=== PATIENT | male | born 1945 | race Caucasian/White ===

== ENCOUNTER → 2017-09-26 | Outpatient (CLI) | payer OTHER | LOC: M.WC 11:33 | DX: E11.622 Type 2 diabetes mellitus with other skin ulcer (principal); L89.892 Pressure ulcer of other site, stage 2; L97.121 Non-pressure chronic ulcer of left thigh limited to breakdown of skin; E11.36 Type 2 diabetes mellitus with diabetic cataract; E11.22 Type 2 diabetes mellitus with diabetic chronic kidney disease; I12.9 Hypertensive chronic kidney disease with stage 1 through stage 4 chronic kidney disease, or unspecified chronic kidney disease; N18.9 Chronic kidney disease, unspecified; L84 Corns and callosities; L60.0 Ingrowing nail; E66.01 Morbid (severe) obesity due to excess calories; E78.5 Hyperlipidemia, unspecified; M19.90 Unspecified osteoarthritis, unspecified site; G62.9 Polyneuropathy, unspecified; G89.29 Other chronic pain; G47.30 Sleep apnea, unspecified; J43.9 Emphysema, unspecified; Z87.891 Personal history of nicotine dependence; Z68.43 Body mass index [BMI] 50.0-59.9, adult ==

== ENCOUNTER → 2017-10-03 | Outpatient (CLI) | payer OTHER | LOC: M.WC 01:55 | DX: E11.622 Type 2 diabetes mellitus with other skin ulcer (principal); L89.892 Pressure ulcer of other site, stage 2; L97.121 Non-pressure chronic ulcer of left thigh limited to breakdown of skin; E11.42 Type 2 diabetes mellitus with diabetic polyneuropathy; E11.36 Type 2 diabetes mellitus with diabetic cataract; E11.22 Type 2 diabetes mellitus with diabetic chronic kidney disease; I12.9 Hypertensive chronic kidney disease with stage 1 through stage 4 chronic kidney disease, or unspecified chronic kidney disease; N18.9 Chronic kidney disease, unspecified; L84 Corns and callosities; E66.01 Morbid (severe) obesity due to excess calories; E78.5 Hyperlipidemia, unspecified; M19.90 Unspecified osteoarthritis, unspecified site; G47.30 Sleep apnea, unspecified; J43.9 Emphysema, unspecified; Z68.43 Body mass index [BMI] 50.0-59.9, adult; Z87.891 Personal history of nicotine dependence ==

== ENCOUNTER → 2017-10-10 | Outpatient (CLI) | payer OTHER | LOC: M.WC 00:44 | DX: E11.622 Type 2 diabetes mellitus with other skin ulcer (principal); L89.892 Pressure ulcer of other site, stage 2; L97.121 Non-pressure chronic ulcer of left thigh limited to breakdown of skin; E11.22 Type 2 diabetes mellitus with diabetic chronic kidney disease; I12.9 Hypertensive chronic kidney disease with stage 1 through stage 4 chronic kidney disease, or unspecified chronic kidney disease; N18.9 Chronic kidney disease, unspecified; E11.42 Type 2 diabetes mellitus with diabetic polyneuropathy; E11.36 Type 2 diabetes mellitus with diabetic cataract; L84 Corns and callosities; M19.90 Unspecified osteoarthritis, unspecified site; E66.01 Morbid (severe) obesity due to excess calories; E78.5 Hyperlipidemia, unspecified; G89.29 Other chronic pain; G47.30 Sleep apnea, unspecified; J43.9 Emphysema, unspecified; Z87.891 Personal history of nicotine dependence; Z68.43 Body mass index [BMI] 50.0-59.9, adult ==

== ENCOUNTER → 2017-10-24 | Outpatient (CLI) | payer OTHER ==
--- NOTE | 2017-10-31 11:11 | PATH ---
[address] [address] PATHOLOGY RPT PROCEDURE Name: DARIANA ROGERS [facility] [id number] Admission: 10/24/17 Date of : 43 Discharge: Report #: [id number] Path Case #: [id number] [facility] Accession Number: [id number] . 01 Material submitted: . LEFT THIGH . 01 Clinical history: . Wound left thigh . 02 Diagnosis: Biopsy left thigh: - Benign skin with non-specific ulceration, negative for granulomas. (OCHOA:db; 10/26/2017) LBQ/10/26/2017 . 02 Electronically signed: . Tarik Ramon MD, Pathologist NPI- [id number] . 01 Gross description: . The specimen is received in formalin, labeled "Dariana Rogers, biopsy L thigh" and consists of an elongate segment of mckoy-brink skin measuring 1.9 x 0.4 x 0.3 cm. It is inked, serially sectioned, and entirely submitted in A1. (SDY; 10/25/2017) SYU/SYU . 02 Pathologist provided ICD-10: L98.499 . 02 CPT . 723410 Performed at: [address], [place], [place] [id number] MD Richard Marvin MD Phone: [phone] Performed at: [address] [address] [place], [place] [id number] MD Tarik Ramon MD Phone: [phone]
== END ==
LOC: M.WC 10-17 02:56
DX: E11.622 Type 2 diabetes mellitus with other skin ulcer (principal); L89.892 Pressure ulcer of other site, stage 2; L97.121 Non-pressure chronic ulcer of left thigh limited to breakdown of skin; E11.42 Type 2 diabetes mellitus with diabetic polyneuropathy; E11.36 Type 2 diabetes mellitus with diabetic cataract; E11.22 Type 2 diabetes mellitus with diabetic chronic kidney disease; I12.9 Hypertensive chronic kidney disease with stage 1 through stage 4 chronic kidney disease, or unspecified chronic kidney disease; N18.9 Chronic kidney disease, unspecified; E66.01 Morbid (severe) obesity due to excess calories; E78.5 Hyperlipidemia, unspecified; M19.90 Unspecified osteoarthritis, unspecified site; J43.9 Emphysema, unspecified; G89.29 Other chronic pain; G47.30 Sleep apnea, unspecified; Z87.891 Personal history of nicotine dependence

== ENCOUNTER → 2017-11-07 | Outpatient (CLI) | payer OTHER | LOC: M.WC 10-31 13:00 | DX: E11.622 Type 2 diabetes mellitus with other skin ulcer (principal); L97.121 Non-pressure chronic ulcer of left thigh limited to breakdown of skin; L89.892 Pressure ulcer of other site, stage 2; E11.22 Type 2 diabetes mellitus with diabetic chronic kidney disease; I12.9 Hypertensive chronic kidney disease with stage 1 through stage 4 chronic kidney disease, or unspecified chronic kidney disease; N18.9 Chronic kidney disease, unspecified; E11.40 Type 2 diabetes mellitus with diabetic neuropathy, unspecified; E11.36 Type 2 diabetes mellitus with diabetic cataract; L84 Corns and callosities; E66.01 Morbid (severe) obesity due to excess calories; E78.5 Hyperlipidemia, unspecified; M19.90 Unspecified osteoarthritis, unspecified site; G89.29 Other chronic pain; G47.30 Sleep apnea, unspecified; J43.9 Emphysema, unspecified; Z87.891 Personal history of nicotine dependence; Z68.43 Body mass index [BMI] 50.0-59.9, adult ==

== ENCOUNTER → 2017-11-14 | Outpatient (CLI) | payer OTHER | LOC: M.WC 03:26 | DX: E11.622 Type 2 diabetes mellitus with other skin ulcer (principal); L89.892 Pressure ulcer of other site, stage 2; L97.121 Non-pressure chronic ulcer of left thigh limited to breakdown of skin; E11.40 Type 2 diabetes mellitus with diabetic neuropathy, unspecified; E11.36 Type 2 diabetes mellitus with diabetic cataract; E11.22 Type 2 diabetes mellitus with diabetic chronic kidney disease; I12.9 Hypertensive chronic kidney disease with stage 1 through stage 4 chronic kidney disease, or unspecified chronic kidney disease; N18.9 Chronic kidney disease, unspecified; L84 Corns and callosities; I25.10 Atherosclerotic heart disease of native coronary artery without angina pectoris; E66.01 Morbid (severe) obesity due to excess calories; E78.5 Hyperlipidemia, unspecified; G89.29 Other chronic pain; M19.90 Unspecified osteoarthritis, unspecified site; G47.30 Sleep apnea, unspecified; J43.9 Emphysema, unspecified; Z68.43 Body mass index [BMI] 50.0-59.9, adult; Z87.891 Personal history of nicotine dependence ==

== ENCOUNTER → 2017-11-21 | Outpatient (CLI) | payer OTHER | LOC: M.WC 04:38 | DX: E11.622 Type 2 diabetes mellitus with other skin ulcer (principal); L89.892 Pressure ulcer of other site, stage 2; L97.121 Non-pressure chronic ulcer of left thigh limited to breakdown of skin; E11.36 Type 2 diabetes mellitus with diabetic cataract; E11.22 Type 2 diabetes mellitus with diabetic chronic kidney disease; N18.9 Chronic kidney disease, unspecified; E11.42 Type 2 diabetes mellitus with diabetic polyneuropathy; L84 Corns and callosities; I25.10 Atherosclerotic heart disease of native coronary artery without angina pectoris; E66.01 Morbid (severe) obesity due to excess calories; E78.5 Hyperlipidemia, unspecified; M19.90 Unspecified osteoarthritis, unspecified site; G89.29 Other chronic pain; G47.30 Sleep apnea, unspecified; J43.9 Emphysema, unspecified; Z87.891 Personal history of nicotine dependence; Z68.43 Body mass index [BMI] 50.0-59.9, adult ==

== ENCOUNTER → 2017-12-12 | Outpatient (CLI) | payer OTHER | LOC: M.WC 11-28 05:12 | DX: E11.622 Type 2 diabetes mellitus with other skin ulcer (principal); L89.892 Pressure ulcer of other site, stage 2; L97.121 Non-pressure chronic ulcer of left thigh limited to breakdown of skin; E11.42 Type 2 diabetes mellitus with diabetic polyneuropathy; E11.36 Type 2 diabetes mellitus with diabetic cataract; E11.22 Type 2 diabetes mellitus with diabetic chronic kidney disease; I12.9 Hypertensive chronic kidney disease with stage 1 through stage 4 chronic kidney disease, or unspecified chronic kidney disease; N18.9 Chronic kidney disease, unspecified; L84 Corns and callosities; M19.90 Unspecified osteoarthritis, unspecified site; I25.10 Atherosclerotic heart disease of native coronary artery without angina pectoris; E78.5 Hyperlipidemia, unspecified; E66.01 Morbid (severe) obesity due to excess calories; G89.29 Other chronic pain; G47.30 Sleep apnea, unspecified; J43.9 Emphysema, unspecified; Z68.43 Body mass index [BMI] 50.0-59.9, adult; Z87.891 Personal history of nicotine dependence ==